=== PATIENT | female | born 1990 | race Caucasian/White ===

== ENCOUNTER 2020-09-17 10:46 | Emergency (ER) | payer OTHER ==
[2020-09-17 10:57] VITALS: BP 116/83; PULSE 75; TEMP 99; BMI 32.4
[2020-09-17 11:24] LABS: EOS % 1.7 % (0-4.5); HEMATOCRIT 36.4 % (32.4-45.2); HEMOGLOBIN 11.7 GM/dl (10.7-15.3); LYMPH % 18.5 % (8-40); MCH 29.2 pg (25.7-33.7); MCHC 32.1 g/dl (32.0-36.0); MEAN CELL VOLUME 91.1 fl (80-96); MONO % 7.5 % (3.8-10.2); NEUT % 71.3 % (42.8-82.8); PLATELET COUNT 418 K/MM3 (134-434); RBC 3.99 M/mm3 (3.60-5.2); RDW 14.2 % (11.6-15.6); WHITE BLOOD COUNT 8.2 K/mm3 (4.0-10.8)
[2020-09-17 11:46] LABS: ALBUMIN 4.3 g/dl (3.4-5.0); BILIRUBIN,TOTAL 0.7 mg/dl (0.2-1); CALCIUM 9.2 mg/dl (8.5-10); CREATININE 0.6 mg/dl (0.55-1.3); POTASSIUM 3.3 mmol/L (3.5-5.1); TOT PROT 7.2 g/dl (6.4-8.2)
[2020-09-17 14:04] LABS: HIV INTERPRETATION NEGATIVE (NEGATIVE)
== END 2020-09-17 11:55 | disposition home or self-care (01) ==
LOC: FER 10:46
DX: S61.432A Puncture wound without foreign body of left hand, initial encounter (principal); W46.1XXA Contact with contaminated hypodermic needle, initial encounter
CPT/HCPCS: 36415; 80053; 80074; 85025; 86705; 86707; 87350; 87389; 87522; 99283-25

== ENCOUNTER 2021-01-27 10:54 | Emergency (ER) | payer OTHER ==
[2021-01-27 11:15] VITALS: BP 126/88; PULSE 88; TEMP 98; BMI 32.3
[2021-01-27 12:35] LABS: EOS % 1.9 % (0-4.5); HEMATOCRIT 40.2 % (32.4-45.2); HEMOGLOBIN 13.4 GM/dl (10.7-15.3); MCH 29.4 pg (25.7-33.7); MCHC 33.4 g/dl (32.0-36.0); MEAN CELL VOLUME 88.1 fl (80-96); MEAN PLT VOLUME 8.1 fl (7.5-11.1); NEUT % 70.1 % (42.8-82.8); PLATELET COUNT 436 K/MM3 (134-434); RBC 4.56 M/mm3 (3.60-5.2); RDW 14.3 % (11.6-15.6); WHITE BLOOD COUNT 7.4 K/mm3 (4.0-10.8)
[2021-01-27 12:40] LABS: ALBUMIN 4.7 g/dl (3.4-5.0); BILIRUBIN,TOTAL 1.4 mg/dl (0.2-1); CALCIUM 9.6 mg/dl (8.5-10); CREATININE 0.6 mg/dl (0.55-1.3); PHOSPHOROUS 3.7 mg/dl (2.5-4.9); POTASSIUM 3.6 mmol/L (3.5-5.1); TOT PROT 7.9 g/dl (6.4-8.2)
[2021-01-27 16:08] LABS: HIV INTERPRETATION NEGATIVE (NEGATIVE)
== END 2021-01-27 12:24 | disposition home or self-care (01) ==
LOC: FER 10:54
DX: Z77.21 Contact with and (suspected) exposure to potentially hazardous body fluids (principal)
CPT/HCPCS: 36415; 80053; 82465; 82977; 83615; 84100; 84478; 84550; 85025; 86317; 86704; 86706; 86803; 87340; 87389; 99283-25

== ENCOUNTER 2021-10-14 14:03 | Emergency (ER) | payer OTHER ==
[2021-10-14 14:19] VITALS: BP 110/69; PULSE 82; TEMP 98.2; BMI 26.6
== END 2021-10-14 14:58 | disposition home or self-care (01) ==
LOC: FER 14:03
DX: Z77.21 Contact with and (suspected) exposure to potentially hazardous body fluids (principal)
CPT/HCPCS: 99281-25

== ENCOUNTER 2021-12-24 16:59 | Emergency (ER) | payer OTHER ==
[2021-12-24 17:11] VITALS: BP 118/77; PULSE 70; TEMP 98.4; BMI 23.3
[2021-12-24] MEDS ORDERED: EMTRICITABINE 200MG/TENOFOVIR 300MG PO STA (17:44)
[2021-12-24] MEDS ORDERED: DOLUTEGRAVIR SODIUM 50 MG TABLET (NON-FORMULARY) PO STA (17:45)
[2021-12-24 18:26] LABS: ALBUMIN 4.9 g/dl (3.4-5.0); BILIRUBIN,TOTAL 0.8 mg/dl (0.2-1); CALCIUM 9.9 mg/dl (8.5-10); CREATININE 0.7 mg/dl (0.55-1.3); TOT PROT 8.1 g/dl (6.4-8.2)
[2021-12-24 19:25] LABS: BASO % 0.6 % (0-2.0); EOS % 4.4 % (0-4.5); HEMATOCRIT 38.3 % (32.4-45.2); HEMOGLOBIN 13.3 GM/dL (10.7-15.3); LYMPH % 20.7 % (8-40); MCH 30.7 pg (25.7-33.7); MCHC 34.6 g/dl (32.0-36.0); MEAN CELL VOLUME 88.7 fl (80-96); MEAN PLT VOLUME 8.5 fl (7.5-11.1); MONO % 6.9 % (3.8-10.2); NEUT % 67.4 % (42.8-82.8); PLATELET COUNT 320 10^3/uL (134-434); RBC 4.31 M/mm3 (3.60-5.2); RDW 13.7 % (11.6-15.6); WHITE BLOOD COUNT 7.5 K/mm3 (4.0-10.0)
[2021-12-24 20:40] LABS: HIV INTERPRETATION NEGATIVE (NEGATIVE)
== END 2021-12-24 18:29 | disposition home or self-care (01) ==
LOC: FER 16:59
DX: S61.239A Puncture wound without foreign body of unspecified finger without damage to nail, initial encounter (principal); W46.1XXA Contact with contaminated hypodermic needle, initial encounter; Z77.21 Contact with and (suspected) exposure to potentially hazardous body fluids
CPT/HCPCS: 36415; 80053; 84703; 85025; 86705; 87340; 87389; 87517; 87522; 99283-25